=== PATIENT | female | born 1960 ===

== ENCOUNTER → 2016-10-28 | Day surgery (SDC) | payer OTHER ==
[~2016-10-28] MED LIST: BUPIVACAINE/EPINEPHRINE 0.25% PF 30 ML VIAL INFIL ONE; DEXAMETHASONE SOD PHOS 4 MG/ML VIAL IV ONE; KETOROLAC TROMETHAMINE 30 MG/ML (IVP) VIAL ONE; LACTATED RINGER'S 1000 ML INJ 1,000 ML ONE; MIDAZOLAM HCL 2 MG/2 ML VIAL ONE; MORPHINE SULFATE 4 MG/ML INJ ONE; ONDANSETRON HCL 4 MG/2 ML VIAL IV PUSH ONE; PROPOFOL 200 MG/20 ML AMP IV ONE; ceFAZolin 2 GM PREMIX 50 ML ONE
--- NOTE | 2016-10-28 13:59 | TN ---
cc: DOC SEE M.D. DATE OF SURGERY: 10/28/2016 PREOPERATIVE DIAGNOSIS 1. Palpable left breast mass. 2. Family history of breast cancer (sister). POSTOPERATIVE DIAGNOSIS 1. Palpable left breast mass. 2. Family history of breast cancer (sister). PROCEDURE PERFORMED Left breast biopsy. SURGEON Doc See MD ANESTHESIA General LMA. COMPLICATIONS None. INDICATION FOR PROCEDURE Ms. Denny is a pleasant 55-year-old female who noticed a mass in her left breast. She underwent ultrasound which showed a complex cyst. She was offered observation versus excision. The patient is referred for surgical consideration and she preferred excision. The patient's sister had a breast cancer at a young age that presented as a breast cyst and she wanted to make sure that hers was not the same. We discussed the risks and benefits of excision and she was agreeable. DETAILS OF PROCEDURE The patient was identified, brought to the operating room and placed supine on the operating table. After adequate general anesthesia was achieved with LMA the left breast was prepped and draped in standard surgical fashion. The breast mass had been marked prior to the patient's induction at the 12 o'clock position in the left breast in the periareolar position. 0.25% Marcaine was injected in periareolar position. A semilunar incision was made along the patient's previous periareolar incision. Subcutaneous tissue was dissected with electrocautery Bovie. Next, using electrocautery and blunt dissection the cyst was identified in the upper central left breast. It was dissected from surrounding tissue using electrocautery Bovie. The cyst was kept intact for the majority of the procedure but at the very end a little bit of fluid was seen leaking out of the inferior border of the cyst. A piece of normal breast tissue adjacent to it was also sent as specimen. The cyst was excised in toto and both specimens were sent to pathology for analysis. By direct palpation there was no other breast masses. The wound was copiously irrigated with normal saline solution. Wound was then filled with 10 ccs of 0.25% Marcaine. Wound was then closed in two layers using a 3-0 and 4-0 Vicryl. Sterile dressings were applied and the patient was awakened, brought to recovery in stable condition. Doc MD SO See/JARVIS /1:30 PM /1:41 PM
== END | disposition home or self-care (01) ==
LOC: ESDC 10:52
PROVIDERS: ATTEND Surgery Trauma Surgery
DX: N63 Unspecified lump in breast (principal); Z80.3 Family history of malignant neoplasm of breast
CPT/HCPCS: 00400; 19120; 88305; J0690; J1100; J1885; J2250; J2270; J2405; J3010; J7120; 88307